=== PATIENT | male | born 1960 | race Two or more races ===

== ENCOUNTER 2018-09-10 07:01 | Day surgery (SDC) | payer BC, OTHER ==
[2018-09-07 09:47] VITALS: BMI 25.2
[2018-09-10] MEDS ORDERED: MIDAZOLAM HCL 2 MG/2 ML SINGLE DOSE VIAL ONE (09:00)
[2018-09-10] MEDS ORDERED: KETOROLAC TROMETHAMINE 30 MG/1 ML VIAL ONE (09:10)
[2018-09-10] MEDS ORDERED: PROPOFOL 20 ML ONE (09:26)
[2018-09-10] MEDS ORDERED: oxyCODONE HCL 5 MG TABLET PO PRN (09:40)
[2018-09-10] MEDS ORDERED: ONDANSETRON 4 MG/2 ML VIAL IVPUSH PRN (09:40)
[2018-09-10] MEDS ORDERED: LACTATED RINGERS SOLUTION 1,000 ML IV SCH (09:45)
--- NOTE | 2018-09-10 09:47 | OP ---
Operative Note - Note: Operative Date: 09/10/18 Pre-Operative Diagnosis: Left renal stone Operation: Lefdt ESWL Findings: 5 mm low Left renal pole stone Post-Operative Diagnosis: Same as Pre-op Surgeon: Alirio Ojeda Anesthesia: Fractional Estimated Blood Loss (mls): 0 Operative Report Dictated: Yes
[2018-09-10 11:26] VITALS: TEMP 97.5
[2018-09-10 12:53] VITALS: BP 133/90; PULSE 58
--- NOTE | 2018-09-11 07:10 | OP ---
DATE OF OPERATION: 09/10/2018 PREOPERATIVE DIAGNOSIS: Left renal stone. POSTOPERATIVE DIAGNOSIS: Left renal stone. PROCEDURE: Left extracorporeal shock wave lithotripsy. ATTENDING: Yeni Anderson MD ANESTHESIA: Fractional. OPERATION WENT FOLLOWS: The patient was brought in the operating room, placed in supine position on the operating room table. Ultrasonography and fluoroscopy were performed. A 5-mm left lower pole stone was identified. At this point, anesthesia and preoperative antibiotics were administered. Shock wave lithotripsy was then started. There was excellent fragmentation of the stone under real time ultrasonography and fluoroscopy. No complications were noted. The disposition of the patient was to the recovery room. YENI ANDERSON M.D. [id number]
== END 2018-09-10 12:40 | disposition home or self-care (01) ==
LOC: JASU-SURG 07:01
PROVIDERS: ATTEND Urology
PROC: 0TF4XZZ Fragmentation in Left Kidney Pelvis, External Approach (ICD-10-PCS; principal; 2018-09-10 08:45)
DX: N20.0 Calculus of kidney (principal)
CPT/HCPCS: 94760

== ENCOUNTER 2020-11-16 18:54 | Emergency (ER) | payer BC ==
[2020-11-16 19:11] VITALS: BP 158/85; PULSE 70; TEMP 97.7; BMI 25.2
== END 2020-11-16 21:47 | disposition home or self-care (01) ==
LOC: JERFT 18:54
DX: S16.1XXA Strain of muscle, fascia and tendon at neck level, initial encounter (principal); V49.40XA Driver injured in collision with unspecified motor vehicles in traffic accident, initial encounter
CPT/HCPCS: 72050-TC-FY; 72070-TC-FY; 99284-25

== ENCOUNTER 2024-06-06 17:20 | Emergency (ER) | payer BC ==
[2024-06-06 17:34] VITALS: BP 152/75; PULSE 66; RESP 18; TEMP 98; BMI 24.2
[2024-06-06] MEDS ORDERED: BACITRACIN 0.9 GM PACKET TP ONE (19:14)
[2024-06-06] MEDS ORDERED: METOCLOPRAMIDE HCL INJECTION 10 MG/2 ML VIAL ONE (19:23)
[2024-06-06] MEDS ORDERED: ACETAMINOPHEN 325 MG TABLET (FP) ONE (19:23)
[2024-06-06 19:54] LABS: ABSOLUTE IMMATURE GRANULOCYTES 0.04 x10^3/uL (0.0-0.031); BASOPHILS # 0.05 x10^3/uL (0.01-0.08); EOSINOPHIL % 1.2 % (0.8-7.0); EOSINOPHILS # 0.08 x10^3/uL (0.04-0.54); HEMATOCRIT 43.2 % (40.1-51.0); HEMOGLOBIN 14.2 g/dL (13.7-17.5); MCHC 32.9 g/dl (32.3-36.5); MEAN CELL VOLUME 93.7 fl (79.0-92.2); MONOCYTE # 0.51 x10^3/uL (0.30-0.82); MONOCYTE % 7.4 % (5.3-12.2); PLATELET COUNT 194 x10^3/uL (163-337); RDW 12.1 % (12.2-16.4)
[2024-06-06 20:02] LABS: INR 1.06 (0.83-1.09); PROTHROMBIN TIME (PATIENT) 11.5 SEC (9.7-13.0)
[2024-06-06 20:05] LABS: ACTIVATED PTT 28.4 SECONDS (25.2-36.5)
[2024-06-06 20:10] LABS: POTASSIUM 3.8 mmol/L (3.5-5.1)
[2024-06-06 20:11] LABS: ALBUMIN 3.8 g/dl (3.4-5.0)
[2024-06-06 20:12] LABS: CALCIUM 9.8 mg/dL (8.5-10.1)
[2024-06-06] MEDS: ACETAMINOPHEN 325 MG TABLET (FP) PO ONE (20:12)
[2024-06-06] MEDS: METOCLOPRAMIDE HCL INJECTION 10 MG/2 ML VIAL IVPUSH ONE (20:12)
[2024-06-06 21:01] LABS: BLOOD UREA NITROGEN 9.2 mg/dL (7-18)
[2024-06-06 21:03] LABS: CREATININE 0.9 mg/dL (0.55-1.3)
[2024-06-06 21:05] LABS: BILIRUBIN,TOTAL 0.3 mg/dL (0.2-1); TOT PROT 6.6 g/dl (6.4-8.2)
== END 2024-06-06 22:13 | disposition home or self-care (01) ==
LOC: JER 17:20
PROC: 3E033GC Introduction of Other Therapeutic Substance into Peripheral Vein, Percutaneous Approach (ICD-10-PCS; principal; 2024-06-06)
DX: R51.9 Headache, unspecified (principal); R20.2 Paresthesia of skin; R20.0 Anesthesia of skin; R53.83 Other fatigue; R10.13 Epigastric pain
CPT/HCPCS: 36415; 70450-TC; 80053; 80061; 82550; 83036; 84484; 85025; 85610; 85730; 93005; 93010; 99285-25